=== PATIENT | male | born 1965 ===

== ENCOUNTER 2017-01-02 05:59 | Emergency (ER) | payer SELFPAY ==
[2017-01-02] MEDS ORDERED: SODIUM CHLORIDE 0.9% FLUSH 10 ML SOL IV PRN (06:10)
[2017-01-02] MEDS ORDERED: ONDANSETRON HCL 4 MG/2 ML SOL IV ONE (06:12)
[2017-01-02] MEDS ORDERED: SODIUM CHLORIDE 0.9% 1000ML 1,000 ML IV ONE ×2 (06:12→07:11)
[2017-01-02 06:18] VITALS: TEMP 97.5
[2017-01-02] MEDS ORDERED: MECLIZINE HYDROCHLORIDE 12.5 MG TAB PO ONE (06:25)
[2017-01-02] MEDS ORDERED: LABETALOL HYDROCHLORIDE 5 MG/ML SOL IV ONE ×2 (06:26→06:30)
[2017-01-02] MEDS ORDERED: MECLIZINE HYDROCHLORIDE 12.5 MG TAB ONE (06:30)
[2017-01-02] MEDS ORDERED: ONDANSETRON HCL 4 MG/2 ML SOL ONE (06:30)
[2017-01-02] MEDS ORDERED: METOPROLOL TARTRATE 25 MG TAB PO ONE (06:43)
[2017-01-02] MEDS ORDERED: METOPROLOL TARTRATE 25 MG TAB ONE (06:49)
[2017-01-02 06:50] LABS: BASOPHILS % (AUTO) 1 % (0-3); EOSINOPHILS % (AUTO) 2 % (0-9); HEMATOCRIT 43 % (39-53); MEAN CORPUSCULAR VOLUME 88 fL (80-100); MONOCYTES % (AUTO) 6.2 % (0-12); NEUTROPHILS % (AUTO) 74.1 % (37-80)
[2017-01-02] MEDS ORDERED: KETOROLAC TROMETHAMINE 30 MG/ML SOL IV ONE (07:02)
[2017-01-02 07:05] LABS: ALBUMIN 3.6 gm/dl (3.4-5.0); ALT 20 IU/L (14-63); CALCIUM 7.4 mg/dl (8.5-10.1); GLOM FILT RATE 82 mL/min (>60); POTASSIUM 3.5 mMol/L (3.5-5.1); SODIUM 143 mMol/L (136-145)
[2017-01-02] MEDS ORDERED: KETOROLAC TROMETHAMINE 30 MG/ML SOL ONE (07:07)
[2017-01-02] MEDS ORDERED: LISINOPRIL 5 MG TAB PO ONE (07:10)
[2017-01-02] MEDS ORDERED: LISINOPRIL 5 MG TAB ONE ×2 (07:12→09:29)
[2017-01-02] MEDS ORDERED: MORPHINE SULFATE 10 MG/ML SOL IV ONE (07:12)
[2017-01-02] MEDS ORDERED: MORPHINE SULFATE 10 MG/ML SOL ONE (07:43)
[2017-01-02 07:52] LABS: APPEARANCE,URINE Clear; BILIRUBIN,URINE NEGATIVE (NEGATIVE); GLUCOSE, URINE (UA) NEGATIVE (NEGATIVE); KETONES,URINE NEGATIVE (NEGATIVE); LEUKOCYTE ESTERASE ,URINE NEGATIVE (NEGATIVE); NITRATE,URINE NEGATIVE (NEGATIVE); OCCULT BLOOD,URINE NEGATIVE (NEG-TRACE); UROBILINOGEN,URINE 0.2 (0.2-1.0 EU)
[2017-01-02 07:59] LABS: AMPHETAMINES NEGATIVE (NEGATIVE); COLOR,URINE YELLOW; METHADONE NEGATIVE (NEGATIVE); OPIATES(OP13) NEGATIVE (NEGATIVE); PROPOXYPHENE(PPX) NEGATIVE (NEGATIVE); RBC,URINE 0-2 (0-3AV/HPF); TRICYCLIC ANTIDEPRESSANTS NEGATIVE (NEGATIVE); WBC,URINE 0-2 (0-5AV/HPF)
[2017-01-02 08:00] LABS: OXYCODONE(OXY) POSITIVE (NEGATIVE)
[2017-01-02 08:41] VITALS: RESP 16
[2017-01-02] MEDS ORDERED: METOPROLOL SUCCINATE 50 MG ER TAB ONE (09:29)
[2017-01-02 09:55] VITALS: BP 156/106; PULSE 58; O2SAT 17
[2017-01-03] MEDS ORDERED: METOPROLOL SUCCINATE 50 MG ER TAB PO SCH (09:00)
[2017-01-03] MEDS ORDERED: METOPROLOL SUCCINATE 50 MG ER TAB PO ONE (09:06)
[2017-01-03] MEDS ORDERED: LISINOPRIL 5 MG TAB PO ONE (09:06)
== END 2017-01-02 09:44 | disposition home or self-care (01) | DRG 305 ==
LOC: ED 05:59
DX: I16.0 Hypertensive urgency (principal); F15.10 Other stimulant abuse, uncomplicated; R42 Dizziness and giddiness; H55.00 Unspecified nystagmus; Z72.0 Tobacco use; F12.10 Cannabis abuse, uncomplicated
CPT/HCPCS: 36415; 70450; 80053; 80305; 81001; 82962; 84484; 85025; 85378; 93005; 99285; J1885; J2270; J2405